=== PATIENT | female | born 1960 | race Caucasian/White ===

== ENCOUNTER 2020-06-24 07:21 | Day surgery (SDC) | payer OTHER ==
--- NOTE | 2020-06-03 15:35 | HP ---
DATE OF ADMISSION: 06/24/2020 DATE OF DICTATION: 04/21/2020 REASON FOR ADMISSION: Symptomatic cholelithiasis. BRIEF HISTORY: This is a 59-year-old female with bouts of epigastric/right upper quadrant pain described as a stabbing sensation. 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 Powell and told that it was most likely related to her gallstones. (Patient initially diagnosed with gallstones back in 2008 from an MRI on her back that noted gallstones within the gallbladder as an incidental finding.) Patient has also undergone upper endoscopy that did not demonstrate specific findings. Patient is here today to have her gallbladder removed. Patient has not had any recent gallbladder studies. Patient has no fever, chills or sweats. She denies having change in stool color or urine color. PAST MEDICAL HISTORY: Significant for hypertension, hypercholesterolemia and thyroid issues. Patient was also recently diagnosed with hypercalcemia and celiac disease. PAST SURGICAL HISTORY: Patient has had spine and wrist surgery. ALLERGIES: To MACROBID and LEVAQUIN. SOCIAL HISTORY: Patient does not smoke, does not drink. No history of drug use. MEDICATIONS: Atenolol and Tirosint. PHYSICAL EXAMINATION: HEENT: There is no icterus. Abdomen: Soft, nontender, nondistended. She has no right-sided CVA tenderness. IMPRESSION/PLAN: Cholelithiasis, suspect history of biliary colic. This is a 59-year-old female with bouts of epigastric and right upper quadrant stabbing pain. She has been worked up extensively with upper endoscopies and ultimately it is deemed that her cause of discomfort is related to her gallstones. Patient's history is consistent with biliary colic and she appears to be symptomatic from her gallstones and, therefore, I agree that we should proceed with a cholecystectomy. She also understands that given her celiac disease she may have persistent bouts of abdominal discomfort not related to the gallbladder and she still wants to proceed. Patient will be scheduled for a laparoscopic cholecystectomy. Prior to surgery will plan to obtain an ultrasound of the gallbladder to further evaluate and confirm gallstones. The indications, the alternatives and complications of the procedure are discussed. Questions answered. Will plan to obtain written consent the day of surgery. PAWEL العلي/[id number] cc: Renard Powell MD
[2020-06-15 17:00] VITALS: BMI 26.6
[2020-06-24] MEDS ORDERED: PROPOFOL 20 ML ONE ×3 (07:36→09:25)
[2020-06-24] MEDS ORDERED: ROCURONIUM BROMIDE 50 MG/5 ML SYRINGE ONE (07:37)
[2020-06-24] MEDS ORDERED: ONDANSETRON 4 MG/2 ML VIAL IVPUSH PRN ×2 (09:04→11:38)
[2020-06-24] MEDS ORDERED: oxyCODONE HCL 5 MG TABLET PO PRN ×2 (09:04→11:38)
[2020-06-24] MEDS ORDERED: DEXAMETHASONE SOD PHOSPHATE/PF 10 MG/ML SDV ONE (09:05)
[2020-06-24] MEDS ORDERED: MIDAZOLAM HCL 2 MG/2 ML SINGLE DOSE VIAL ONE (09:06)
[2020-06-24] MEDS ORDERED: BUPIVACAINE HCL/PF 0.5% (5 MG/ML) 30 ML VIAL IJ ONE (09:06)
[2020-06-24] MEDS ORDERED: SCOPOLAMINE HYDROBROMIDE 1 PATCH PATCH.TD72 ONE (09:08)
[2020-06-24] MEDS ORDERED: ONDANSETRON 4 MG/2 ML VIAL ONE ×2 (09:30→10:02)
[2020-06-24] MEDS ORDERED: DEXAMETHASONE SOD PHOSPHATE 4 MG/1 ML VIAL ONE ×2 (09:30→10:02)
[2020-06-24] MEDS ORDERED: ceFAZolin SODIUM 1 GM VIAL ONE (09:34)
[2020-06-24] MEDS ORDERED: NEOSTIGMINE METHYLSULFATE 0.5 MG/ML - 10 ML MDV ONE (10:02)
[2020-06-24] MEDS ORDERED: GLYCOPYRROLATE 0.2 MG/1 ML VIAL ONE ×2 (10:02→10:18)
[2020-06-24] MEDS ORDERED: KETOROLAC TROMETHAMINE 30 MG/1 ML VIAL ONE (10:02)
[2020-06-24] MEDS ORDERED: FAMOTIDINE 20 MG PREMIXED IVPB IVPB ONE (11:32)
[2020-06-24] MEDS ORDERED: FAMOTIDINE 20 MG/50 ML IVPB 20 MG/50 ML MG IVPB ONE ×2 (11:33→13:51)
[2020-06-24] MEDS ORDERED: morphine SULFATE 4 MG/ML VIAL IVPB PRN (11:38)
[2020-06-24] MEDS ORDERED: D5-1/2NS+20 MEQ KCL - 20 MEQ/1,000 ML INFUS.BAG IV SCH (11:45)
--- NOTE | 2020-06-24 12:22 | OP ---
DATE OF OPERATION: 06/24/2020 PREOPERATIVE DIAGNOSIS: Cholelithiasis, biliary colic, chronic incarcerated umbilical hernia. POSTOPERATIVE DIAGNOSIS: Biliary colic, cholelithiasis, and chronically incarcerated umbilical hernia. PROCEDURE: Laparoscopic cholecystectomy, peritoneal lavage. SURGEON: Ishan Yan MD CIGARETTE MAKER: Phil Perez MD ANESTHESIA: Robina Moreno MD (general). ESTIMATED BLOOD LOSS: Minimal. SPECIMEN: Gallbladder. INDICATION FOR PROCEDURE: This is a 59-year-old female with bouts of epigastric and right upper quadrant pain. Workup demonstrated cholelithiasis. She is here today for a laparoscopic cholecystectomy due to biliary disease. DESCRIPTION OF PROCEDURE: Patient identified and appropriately positioned on the operating table. After placement of anesthesia, the abdomen prepped and draped in the usual sterile fashion with ChloraPrep. A infraumbilical incision was made beneath the chronically incarcerated umbilical hernia and deepened to subcutaneous tissue. The fascia was identified, divided sharply. The peritoneum incised under direct vision. A Veress needle followed by structural needle was placed. Also under direct vision the remaining ports placed. The gallbladder identified in the right upper quadrant. Had changes consistent with chronic cholelithiasis and cholecystitis. The gallbladder reflected over the dome of the liver in a standard fashion. Going from lateral to medial, the neck and infundibulum of the gallbladder identified, followed by the cystic duct. The cystic duct circumferentially isolated, clipped, and then divided. The cystic artery identified more posteriorly and medially. It was circumferentially isolated, clipped, and then divided in a similar fashion. The gallbladder itself was removed from the liver bed with electrocautery. Prior to complete removal, the liver bed was irrigated, the operative field examined, noted to be hemostatic. The specimen was brought out through the umbilical port site. The right upper quadrant copiously irrigated with warm saline, the irrigant retrieved, the operative field noted to be hemostatic. Ports removed. Port sites were hemostatic. The fascia at the umbilical port site was reapproximated with interrupted 0 Vicryl suture. The chronically incarcerated belly button hernia was not repaired at this time and can be repaired should this become symptomatic at a future date. At the conclusion of this case, sponge counts were correct. ATTESTATION: Brief operative note handwritten on the preprinted form. [facility] queried prior to giving any narcotics. Alex GACRIAS [id number] cc: Renard Powell MD
[2020-06-25] MEDS ORDERED: LEVOTHYROXINE NA 112 MCG TABLET (FP) PO SCH (07:00)
[2020-06-25] MEDS ORDERED: ACETAMINOPHEN 325 MG TABLET (FP) PO PRN (09:28)
[2020-06-25] MEDS ORDERED: [UNRECOGNIZED DRUG - OTHER] PO SCH (10:00)
[2020-06-25] MEDS ORDERED: ENOXAPARIN NA (PORCINE) 40 MG/0.4 ML DISP.SYRIN SQ SCH (10:00)
[2020-06-25] MEDS ORDERED: HYOSCY PO SCH (10:00)
[2020-06-25] MEDS ORDERED: ATROPINE PO SCH (10:00)
[2020-06-25] MEDS ORDERED: ATENOLOL 50 MG TABLET (FP) PO SCH (10:00)
[2020-06-25] MEDS ORDERED: SCOP PO SCH (10:00)
[2020-06-25] MEDS ORDERED: PANTOPRAZOLE SODIUM 40 MG VIAL IVPUSH SCH (10:00)
[2020-06-25] MEDS ORDERED: PHENOBARB PO SCH (10:00)
[2020-06-25 10:14] VITALS: BP 135/65; PULSE 68; TEMP 98.3
[2020-06-25] MEDS: LACTATED RINGERS SOLUTION 1,000 ML IV SCH ×2 (11:11→11:12)
--- NOTE | 2020-06-26 13:36 | PATH ---
Surgical Pathology Report Patient Name: TUNG MONTANO Med. Rec. #: [id number] /Age/Gender: 1960 (Age: 59) / F Account: [id number] Location: [facility] Taken: 06/24/2020 Received: 06/24/2020 Reported: 06/26/2020 Physicians: Ishan Yan Specimen(s) Received GALLBLADDER Clinical History Gallstone Final Diagnosis GALLBLADDER, CHOLECYSTECTOMY: CHRONIC CHOLECYSTITIS AND CHOLELITHIASIS. ONE BENIGN REACTIVE LYMPH NODE. Electronically Signed Caridad Isaacs M.D. Gross Description Received in formalin, labeled "gallbladder," is an 11.5 x 3.4 x 3.4 cm. gallbladder with a 0.3 cm. in length portion of cystic duct attached. There is a 0.8 cm greatest dimension periductal lymph node present. The outer surface is rivera-green and varies from smooth to shaggy. The lumen contains green, tenacious bile as well as abundant yellow, irregular choleliths averaging 0.6 cm in greatest dimension. The mucosa is green with focal erosions. The wall of the gallbladder measures 0.1 cm. in thickness. Technology Teacher sections are submitted in one cassette. /06/25/2020 saudi06/25/2020
== END 2020-06-25 11:20 | disposition home or self-care (01) ==
LOC: FASUSAT 07:21 → FM/S 13:13 → FASUSAT 06-25 11:20
PROVIDERS: ATTEND Surgery
PROC: 0FT44ZZ Resection of Gallbladder, Percutaneous Endoscopic Approach (ICD-10-PCS; principal; 2020-06-24 09:35)
DX: K80.60 Calculus of gallbladder and bile duct with cholecystitis, unspecified, without obstruction (principal)
CPT/HCPCS: 88304-TC; 94760

== ENCOUNTER 2021-02-11 04:49 | Day surgery (SDC) | payer OTHER ==
[2021-02-10 16:30] VITALS: BMI 25.2
[2021-02-11 08:38] VITALS: TEMP 97.4
[2021-02-11 09:30] VITALS: BP 130/75; PULSE 68
== END 2021-02-11 09:21 | disposition home or self-care (01) ==
LOC: JASU-ENDO 04:49
PROVIDERS: ATTEND Internal Medicine Gastroenterology
PROC: 0DBH8ZX Excision of Cecum, Via Natural or Artificial Opening Endoscopic, Diagnostic (ICD-10-PCS; principal; 2021-02-11 08:09)
DX: Z12.11 Encounter for screening for malignant neoplasm of colon (principal); D12.0 Benign neoplasm of cecum
CPT/HCPCS: 88305-TC

== ENCOUNTER 2024-03-21 04:26 | Day surgery (SDC) | payer OTHER ==
[2024-03-19 11:28] VITALS: BMI 26.9
[2024-03-21 08:58] VITALS: TEMP 98
[2024-03-21 09:26] VITALS: BP 130/78; PULSE 60; RESP 13
== END 2024-03-21 09:46 | disposition home or self-care (01) ==
LOC: JASU-ENDO 04:26
PROVIDERS: ATTEND Internal Medicine Gastroenterology
PROC: 0DB98ZX Excision of Duodenum, Via Natural or Artificial Opening Endoscopic, Diagnostic (ICD-10-PCS; 2024-03-21)
PROC: 0DB78ZX Excision of Stomach, Pylorus, Via Natural or Artificial Opening Endoscopic, Diagnostic (ICD-10-PCS; 2024-03-21)
PROC: 0DB68ZX Excision of Stomach, Via Natural or Artificial Opening Endoscopic, Diagnostic (ICD-10-PCS; 2024-03-21)
PROC: 0DJD8ZZ Inspection of Lower Intestinal Tract, Via Natural or Artificial Opening Endoscopic (ICD-10-PCS; principal; 2024-03-21 08:30)
DX: Z12.11 Encounter for screening for malignant neoplasm of colon (principal); K29.80 Duodenitis without bleeding; K29.50 Unspecified chronic gastritis without bleeding; I10 Essential (primary) hypertension
CPT/HCPCS: 88305-TC; 88342-TC